=== PATIENT | male | born 1965 | race Caucasian/White ===

== ENCOUNTER → 2017-01-17 | Outpatient (CLI) | payer OTHER ==
[~2017-01-17] MED LIST: LORTAB 5/500 501 TAB PO; NAPROSYN500 MG PO
== END ==
LOC: ZLAB.FHCC 11:14
DX: Z01.89 Encounter for other specified special examinations (principal)

== ENCOUNTER → 2018-06-12 | Outpatient (CLI) | payer OTHER ==
[2018-06-12 12:44] LABS: ALBUMIN 4.4 gm/dL (3.5-5.0); BILIRUBIN,TOTAL 0.6 mg/dL (0.0-1.0); CALCIUM 9.4 mg/dL (8.4-10.2); CHOLESTEROL RISK RATIO 3.6; CREATININE, serum 0.82 mg/dL (0.66-1.25); POTASSIUM 4.4 mmol/L (3.4-5.0); TOTAL PROTEIN 7.2 gm/dL (6.4-8.2)
[2018-06-12 23:32] LABS: HEPATITIS B SURFACE ANTIGEN Negative (Negative); HEPATITIS C VIRUS ANTIBODY Negative (Negative)
== END ==
LOC: ZLAB.FHCC 11:06
PROVIDERS: Nurse Practitioner Family
DX: K21.9 Gastro-esophageal reflux disease without esophagitis (principal); F41.9 Anxiety disorder, unspecified

== ENCOUNTER 2019-10-08 08:28 | Day surgery (SDC) | payer SELFPAY ==
[~2019-10-08] VITALS: Ht 188 cm; Wt 103.9 kg
[2019-10-08] MEDS ORDERED: MAGNESIUM200 MG PO (08:55)
[2019-10-08] MEDS ORDERED: OMEGA-31 SGL PO (08:56)
[2019-10-08] MEDS ORDERED: ZANTAC 7575 MG PO (08:56)
[2019-10-08 08:58] VITALS: BP 132/80; PULSE 78; TEMP 97.4
[2019-10-08 11:30] VITALS: BP 105/79; PULSE 76; TEMP 97.8
--- NOTE | 2019-10-08 11:30 | NUR ---
Pt arrived post colonoscopy via cart with Endo RN. Pt ambulated easily to chair with touch assist and this RN received report from Endo RN, Jasmin. VSS and WNL and pt awake and grateful that the procedure went well. Call ligth within reach and pt's at bedside.
[2019-10-08 11:45] VITALS: BP 110/71; PULSE 80
--- NOTE | 2019-10-08 11:45 | NUR ---
Pt sitting comfortably in chair and was able to drink water without c/o nausea or pain. VSS and WNL, and pt states that he is ready to go home.
[2019-10-08 12:00] VITALS: BP 102/75; PULSE 77
--- NOTE | 2019-10-08 12:18 | NUR ---
at pt's bedside reviewing procedure with pt and . Reviewed discharge information with pt including educational packet with new medication information. Pt states that he is ready to go home, and he meets criteria for discharge. VSS and WNL
== END 2019-10-08 12:22 | disposition home or self-care (01) ==
LOC: SDCO 08:28
DX: Z12.11 Encounter for screening for malignant neoplasm of colon (principal); Z86.010 Personal history of colon polyps; K64.0 First degree hemorrhoids; K29.30 Chronic superficial gastritis without bleeding; K44.9 Diaphragmatic hernia without obstruction or gangrene
CPT/HCPCS: J2250; J3010; J7030

== ENCOUNTER 2020-11-02 12:18 | Emergency (ER) | payer SELFPAY ==
[~2020-11-02] VITALS: Ht 188 cm; Wt 103.6 kg
[~2020-11-02 12:18] MED LIST changes: +MAGNESIUM200 MG PO; +OMEGA-31 SGL PO; +ZANTAC 7575 MG PO
[2020-11-02 12:49] VITALS: TEMP 98
[2020-11-02 15:58] LABS: COLLECTION METHOD CLEAN CATCH
[2020-11-02 16:02] LABS: ALBUMIN 4.9 gm/dL (3.5-5.0); BILIRUBIN,TOTAL 0.8 mg/dL (0.0-1.0); C-REACTIVE PROTEIN 0.7 mg/dL (0.0-0.9); CALCIUM 9.7 mg/dL (8.4-10.2); CREATININE, serum 0.77 (0.66-1.25); TOTAL PROTEIN 7.8 gm/dL (6.4-8.2)
[2020-11-02 16:14] LABS: BASO # 0.1 (0.0-0.2); BASO % 0.4 % (0.0-2.0); EOS # 0.2 (0.0-0.7); EOS % 1.2 % (0-4.0); GRAN # 10.5 (1.4-6.5); GRAN % 73.7 % (42.2-75.2); HEMATOCRIT 48.6 % (42.0-52.0); HEMOGLOBIN 16.2 g/dl (13.5-18.0); LYMPH # 2.6 (1.2-3.4); LYMPH % 18.1 % (20.0-51.0); MEAN CELL VOLUME 90 fl (80.0-100.0); MEAN CORPUSCULAR HEMOGLOBIN 30 pg (27.0-31.0); MEAN CORPUSCULAR HGB CONC 33 g/dl (33.0-37.0); MEAN PLATELET VOLUME 11.3 fl (7.4-10.4); MONO # 0.9 (0.1-0.6); MONO % 6.3 % (1.7-9.3); PLATELET COUNT 247 K/mm3 (130-400); RED BLOOD COUNT 5.41 M/mm3 (4.20-5.60); REDCELL DISTRIBUTION WIDTH-CV 11.9 % (11.5-14.5)
[2020-11-02 16:15] LABS: MUCOUS Present /lpf; PH 6 (5-8); SQUAMOUS EPITHELIAL 0-2 /hpf; URINE APPEARANCE Cloudy; URINE BACTERIA Rare /hpf; URINE BILIRUBIN Negative (NEGATIVE); URINE BLOOD 3+ (NEGATIVE); URINE COLOR Amber; URINE GLUCOSE Negative (NEGATIVE); URINE KETONE Negative (NEGATIVE); URINE LEUKOCYTE ESTERASE Negative (NEGATIVE); URINE NITRATE Negative (NEGATIVE); URINE PROTEIN(semi-quant) 2+ (NEGATIVE); URINE RBC >50 /hpf; URINE UROBILINOGEN Negative (NEGATIVE)
[2020-11-02] MEDS ORDERED: ZOFRAN 4MG T4 MG/TAB PO (17:56)
[2020-11-02] MEDS ORDERED: NORCO 325 MG-51 TAB PO (17:56)
[2020-11-02] MEDS ORDERED: CIPRO 500MG TA500 MG PO (17:56)
[2020-11-02 18:06] VITALS: BP 125/82; PULSE 66
== END 2020-11-02 18:08 | disposition home or self-care (01) ==
LOC: COL.ER 12:18
PROVIDERS: Nurse Practitioner Primary Care
DX: N39.0 Urinary tract infection, site not specified (principal); N13.2 Hydronephrosis with renal and ureteral calculous obstruction; Z87.891 Personal history of nicotine dependence
CPT/HCPCS: J0696; J2270; J2405; J7030